=== PATIENT | male | born 1995 | race Caucasian/White ===

== ENCOUNTER 2017-01-20 00:41 | Emergency (ER) | payer BC ==
[~2017-01-20] VITALS: Ht 167.6 cm; Wt 72.9 kg
[2017-01-20] MEDS ORDERED: VISTARIL25 MG PO (02:10)
[2017-01-20 02:47] VITALS: BP 121/61
== END 2017-01-20 02:47 | disposition home or self-care (01) ==
LOC: EME 00:41
DX: F41.0 Panic disorder [episodic paroxysmal anxiety] (principal); R42 Dizziness and giddiness; R20.0 Anesthesia of skin; F17.200 Nicotine dependence, unspecified, uncomplicated
CPT/HCPCS: 93005; 99281; 99283